=== PATIENT | female | born 1990 | race Caucasian/White ===

== ENCOUNTER 2016-06-15 07:32 | Emergency (ER) | payer OTHER ==
[~2016-06-15] VITALS: Ht 162.6 cm; Wt 87.5 kg
[~2016-06-15 07:32] MED LIST: AVIANE1 EACH PO; BACTRIM,SEPT1 TABLET PO; CEFDINIR300 MG PO; FLEXERIL10 MG PO; HYDROXYZINE HCL10 MG PO; NAPROSYN500 MG PO; PREDNISONE20 MG PO; PROZAC10 M1 PO; ZOFRAN4 MG PO; ZOLOFT50 M1 PO
[2016-06-15] MEDS ORDERED: TRAZODONE HCL50 MG PO (07:49)
[2016-06-15] MEDS ORDERED: ATARAX10 MG PO (07:49)
[2016-06-15] MEDS ORDERED: ORSYTHIA1 EACH PO (07:50)
[2016-06-15 08:01] LABS: EOSINOPHIL (%) 1.5 % (0-5); EOSINOPHIL COUNT 0.2 K/uL (0-0.3); HEMATOCRIT 41.7 % (36.0-46.0); IMMATURE GRANULOCYTE (%) 0.3 % (0.0-0.7); IMMATURE GRANULOCYTE COUNT 0.3 K/uL; MCHC 34.8 G/DL (30.0-36.0); MCV 83.4 FL (83-99); MEAN PLAT.VOLUME 9.6 uM^3 (9.5-12.4); MONOCYTE (%) 6.4 % (3-12); MONOCYTE COUNT 0.7 K/uL (0-0.8); NEUTROPHIL (%) 64.1 % (45-76); NEUTROPHIL COUNT 6.9 K/uL (1.8-6.4); PLATELET COUNT 355 K/uL (156-360); RBC DIS.WIDTH-SD 38.8 % (39-53); WHITE BLOOD COUNT 10.8 K/uL (4.1-10.2)
[2016-06-15 08:11] LABS: CHLORIDE 106 mEq/L (99-109)
[2016-06-15 08:12] LABS: POTASSIUM 3.5 mEq/L (3.7-5.4); SODIUM 139 mEq/L (136-147)
[2016-06-15 08:14] LABS: GLUCOSE 106 mg/dL (70-99)
[2016-06-15 08:15] LABS: ANION GAP 10 MEQ/L (2-14)
[2016-06-15 08:16] LABS: TOTAL BILIRUBIN 0.4 mg/dL (0.0-1.0)
[2016-06-15 08:17] LABS: ALKALINE PHOSPHATASE 92 IU/L (3-129)
[2016-06-15 08:18] LABS: GFR ESTIMATE (CALCULATED) > 59 mL/min/
[2016-06-15 08:19] LABS: UREA NITROGEN (BUN) 14 mg/dL (9-23)
[2016-06-15 08:27] LABS: QUANTITATIVE HCG < 4.0 MIU/ML
[2016-06-15 08:37] LABS: INFLUENZA A VIRAL ANTIGEN NEGATIVE; INFLUENZA B VIRAL ANTIGEN NEGATIVE
[2016-06-15] MEDS ORDERED: ZOFRAN ODT4 MG PO (08:43)
[2016-06-15 09:02] VITALS: BP 112/75
[2016-06-30] MEDS ORDERED: ZOFRAN4 MG PO (02:58)
== END 2016-06-15 09:02 | disposition home or self-care (01) ==
LOC: EME 07:32
PROVIDERS: Physician Assistant
DX: K52.9 Noninfective gastroenteritis and colitis, unspecified (principal)
CPT/HCPCS: 80053; 84702; 85025; 87502; 99281; 99284

== ENCOUNTER 2016-06-17 00:31 | Emergency (ER) | payer OTHER ==
[~2016-06-17] VITALS: Ht 162.6 cm; Wt 85.9 kg
[~2016-06-17 00:31] MED LIST changes: +ATARAX10 MG PO; +ORSYTHIA1 EACH PO; +TRAZODONE HCL50 MG PO; +ZOFRAN ODT4 MG PO
[2016-06-17 00:54] LABS: HEMATOCRIT 42.7 % (36.0-46.0); MCH 28.9 PG (29.0-34.0); MCHC 34.4 G/DL (30.0-36.0); MCV 83.9 FL (83-99); MEAN PLAT.VOLUME 9.6 uM^3 (9.5-12.4); PLATELET COUNT 363 K/uL (156-360); RBC DIS.WIDTH-CV 13.1 % (11.8-14.6); RBC DIS.WIDTH-SD 39.4 % (39-53); RED BLOOD COUNT 5.09 M/uL (3.80-5.20); WHITE BLOOD COUNT 11.7 K/uL (4.1-10.2)
[2016-06-17 00:58] LABS: CHLORIDE 107 mEq/L (99-109); POTASSIUM 3.8 mEq/L (3.7-5.4); SODIUM 141 mEq/L (136-147)
[2016-06-17 00:59] LABS: ADD MIUA? YES; BILIRUBIN NEGATIVE; BLOOD NEGATIVE; COLOR AMBER ((YELLOW)); GLUCOSE (STRIP) NEGATIVE; KETONES 20; LEUKOCYTES MODERATE; NITRITE NEGATIVE; PROTEIN (STRIP) 30; SPECIFIC GRAVITY 1.026 (1.000-1.030)
[2016-06-17 01:00] LABS: GLUCOSE 91 mg/dL (70-99)
[2016-06-17 01:01] LABS: ANION GAP 13 MEQ/L (2-14)
[2016-06-17 01:03] LABS: ALKALINE PHOSPHATASE 95 IU/L (3-129)
[2016-06-17 01:04] LABS: GFR ESTIMATE (CALCULATED) > 59 mL/min/
[2016-06-17 01:05] LABS: UREA NITROGEN (BUN) 10 mg/dL (9-23)
[2016-06-17 01:08] LABS: BACTERIA 1+ /HPF; EPITHELIAL CELLS 2+ /HPF; MUCUS 3+ /LPF; UCUL ADDED? NO
[2016-06-17 01:15] LABS: QUANTITATIVE HCG < 4.0 MIU/ML
[2016-06-17 01:16] LABS: TOTAL BILIRUBIN 0.7 mg/dL (0.0-1.0)
[2016-06-17] MEDS ORDERED: OMEPRAZOLE40 M1 PO (01:44)
[2016-06-17] MEDS ORDERED: PERCOCET 5/31 TABLET PO (01:44)
[2016-06-17 02:01] VITALS: BP 1443/78
[2016-06-17] MEDS ORDERED: ZOFRAN ODT4 MG PO (09:35)
[2016-06-17] MEDS ORDERED: BENTYL10 MG PO (09:35)
[2016-06-30] MEDS ORDERED: ZOFRAN4 MG PO (02:58)
== END 2016-06-17 01:57 | disposition home or self-care (01) ==
LOC: EME 00:31
DX: R10.9 Unspecified abdominal pain (principal)
CPT/HCPCS: 74177; 80053; 81003; 84702; 85027; 99281; 99285; J2405; S0028

== ENCOUNTER 2016-06-17 07:25 | Emergency (ER) | payer OTHER ==
[~2016-06-17] VITALS: Ht 162.6 cm; Wt 86.5 kg
[~2016-06-17 07:25] MED LIST changes: +OMEPRAZOLE40 M1 PO; +PERCOCET 5/31 TABLET PO
[2016-06-17 08:03] LABS: ADD MIUA? YES; BILIRUBIN NEGATIVE; BLOOD NEGATIVE; COLOR AMBER ((YELLOW)); GLUCOSE (STRIP) NEGATIVE; KETONES 20; LEUKOCYTES MODERATE; NITRITE NEGATIVE; PROTEIN (STRIP) NEGATIVE
[2016-06-17 08:29] LABS: EPITHELIAL CELLS 2+ /HPF
[2016-06-17 08:30] LABS: BACTERIA 2+ /HPF; CASTS NONE SEEN /LPF; CRYSTALS NONE SEEN; MUCUS NONE SEEN /LPF; RED BLOOD CELLS NONE SEEN /HPF (0-5); UCUL ADDED? YES
[2016-06-17 08:38] LABS: SPECIFIC GRAVITY 1.088 (1.000-1.030)
[2016-06-17] MEDS ORDERED: BENTYL10 MG PO (09:35)
[2016-06-17] MEDS ORDERED: ZOFRAN ODT4 MG PO (09:35)
[2016-06-17 09:43] VITALS: BP 127/69
[2016-06-30] MEDS ORDERED: ZOFRAN4 MG PO (02:58)
== END 2016-06-17 09:51 | disposition home or self-care (01) ==
LOC: EME → EDBD 07:25 → EME 09:51
PROVIDERS: Nurse Practitioner Family
DX: R10.13 Epigastric pain (principal); R11.0 Nausea; R50.9 Fever, unspecified
CPT/HCPCS: 76705; 80053; 81003; 83690; 85027; 87086; 99281; 99284

== ENCOUNTER 2016-08-14 03:30 | Emergency (ER) | payer OTHER ==
[~2016-08-14] VITALS: Ht 162.6 cm; Wt 83.2 kg
[~2016-08-14 03:30] MED LIST changes: +BENTYL10 MG PO
[2016-08-14 04:18] LABS: ADD MIUA? YES; BILIRUBIN NEGATIVE; BLOOD NEGATIVE; COLOR YELLOW ((YELLOW)); GLUCOSE (STRIP) NEGATIVE; KETONES 20; LEUKOCYTES TRACE; NITRITE NEGATIVE; PROTEIN (STRIP) NEGATIVE; SPECIFIC GRAVITY 1.023 (1.000-1.030); UROBILINOGEN 0.2 MG/DL (0.2-1.0)
[2016-08-14 04:19] LABS: HEMATOCRIT 44.3 % (36.0-46.0); MCH 28.8 PG (29.0-34.0); MCHC 33.9 G/DL (30.0-36.0); MEAN PLAT.VOLUME 9.5 uM^3 (9.5-12.4); PLATELET COUNT 351 K/uL (156-360); RBC DIS.WIDTH-CV 12.7 % (11.8-14.6); RBC DIS.WIDTH-SD 39.2 % (39-53); RED BLOOD COUNT 5.21 M/uL (3.80-5.20); WHITE BLOOD COUNT 12.4 K/uL (4.1-10.2)
[2016-08-14 04:21] LABS: BACTERIA RARE /HPF; EPITHELIAL CELLS 2+ /HPF; MUCUS TRACE /LPF; RED BLOOD CELLS 0-5 /HPF (0-5); UCUL ADDED? NO; WHITE BLOOD CELLS 0-5 /HPF (0-5)
[2016-08-14 04:30] LABS: CHLORIDE 106 mEq/L (99-109); POTASSIUM 3.8 mEq/L (3.7-5.4); SODIUM 137 mEq/L (136-147)
[2016-08-14 04:32] LABS: GLUCOSE 108 mg/dL (70-99)
[2016-08-14 04:33] LABS: ANION GAP 9 MEQ/L (2-14)
[2016-08-14 04:34] LABS: TOTAL BILIRUBIN 0.7 mg/dL (0.0-1.0)
[2016-08-14 04:35] LABS: ALKALINE PHOSPHATASE 92 IU/L (3-129)
[2016-08-14 04:36] LABS: GFR ESTIMATE (CALCULATED) > 59 mL/min/
[2016-08-14 04:37] LABS: UREA NITROGEN (BUN) 12 mg/dL (9-23)
[2016-08-14 04:39] LABS: LIPASE 13 U/L (1.0-51.0)
[2016-08-14 04:45] LABS: QUANTITATIVE HCG < 4.0 MIU/ML
[2016-08-14] MEDS ORDERED: ZOFRAN ODT4 MG PO (05:43)
[2016-08-14] MEDS ORDERED: PERCOCET 5/31 TABLET PO (05:43)
[2016-08-14 05:58] VITALS: BP 100/73
== END 2016-08-14 05:59 | disposition home or self-care (01) ==
LOC: EME 03:30
PROVIDERS: Emergency Medicine
DX: R10.9 Unspecified abdominal pain (principal); R11.2 Nausea with vomiting, unspecified; F41.9 Anxiety disorder, unspecified; K29.70 Gastritis, unspecified, without bleeding
CPT/HCPCS: 80053; 81003; 83690; 84702; 85027; 93005; 99281; 99285; J2270; J2405; J7030; Q0169

== ENCOUNTER 2016-08-16 08:21 | Emergency (ER) | payer OTHER ==
[~2016-08-16] VITALS: Ht 162.6 cm; Wt 83.6 kg
[2016-08-16 09:10] LABS: ADD MIUA? YES; BILIRUBIN NEGATIVE; BLOOD SMALL; COLOR YELLOW ((YELLOW)); GLUCOSE (STRIP) NEGATIVE; KETONES 5; LEUKOCYTES LARGE; NITRITE NEGATIVE; PROTEIN (STRIP) NEGATIVE; SPECIFIC GRAVITY 1.017 (1.000-1.030)
[2016-08-16 09:12] LABS: HEMATOCRIT 44.3 % (36.0-46.0); MCH 28.7 PG (29.0-34.0); MCHC 33.6 G/DL (30.0-36.0); MCV 85.4 FL (83-99); MEAN PLAT.VOLUME 9.5 uM^3 (9.5-12.4); PLATELET COUNT 323 K/uL (156-360); RBC DIS.WIDTH-CV 12.6 % (11.8-14.6); RBC DIS.WIDTH-SD 39.1 % (39-53); RED BLOOD COUNT 5.19 M/uL (3.80-5.20)
[2016-08-16 09:15] LABS: BACTERIA 3+ /HPF; BUDDING YEAST 2+; EPITHELIAL CELLS 4+ /HPF; MUCUS 2+ /LPF; WHITE BLOOD CELLS 15-20 /HPF (0-5)
[2016-08-16 09:20] LABS: CHLORIDE 103 mEq/L (99-109); POTASSIUM 3.7 mEq/L (3.7-5.4); SODIUM 137 mEq/L (136-147)
[2016-08-16 09:22] LABS: GLUCOSE 99 mg/dL (70-99)
[2016-08-16 09:24] LABS: ANION GAP 10 MEQ/L (2-14)
[2016-08-16 09:25] LABS: TOTAL BILIRUBIN 0.4 mg/dL (0.0-1.0)
[2016-08-16 09:26] LABS: ALKALINE PHOSPHATASE 75 IU/L (3-129); GFR ESTIMATE (CALCULATED) > 59 mL/min/
[2016-08-16 09:27] LABS: UREA NITROGEN (BUN) 7 mg/dL (9-23)
[2016-08-16 09:35] LABS: QUANTITATIVE HCG < 4.0 MIU/ML
[2016-08-16] MEDS ORDERED: KEFLEX500 MG PO (10:15)
[2016-08-16] MEDS ORDERED: PHENERGAN25 MG PR (10:15)
[2016-08-16] MEDS ORDERED: BENTYL20 MG PO (10:15)
[2016-08-16 10:41] VITALS: BP 123/83
[2016-08-17] MEDS ORDERED: ZOFRAN4 MG PO (01:22)
== END 2016-08-16 10:45 | disposition home or self-care (01) ==
LOC: EME 08:21
PROVIDERS: Nurse Practitioner Family
DX: N39.0 Urinary tract infection, site not specified (principal); R11.0 Nausea; F41.9 Anxiety disorder, unspecified
CPT/HCPCS: 74000; 80053; 81003; 84702; 85027; 99281; 99284; J1885; J2405; J7030; Q0169

== ENCOUNTER 2016-08-16 22:37 | Emergency (ER) | payer OTHER ==
[~2016-08-16] VITALS: Ht 162.6 cm; Wt 84.5 kg
[~2016-08-16 22:37] MED LIST changes: +BENTYL20 MG PO; +KEFLEX500 MG PO; +PHENERGAN25 MG PR
[2016-08-17] LABS: HEMATOCRIT 44.1 % (36.0-46.0); MCH 28.2 PG (29.0-34.0); MCHC 32.9 G/DL (30.0-36.0); MCV 85.8 FL (83-99); MEAN PLAT.VOLUME 9.8 uM^3 (9.5-12.4); PLATELET COUNT 309 K/uL (156-360); RBC DIS.WIDTH-CV 12.6 % (11.8-14.6); RBC DIS.WIDTH-SD 39.1 % (39-53); RED BLOOD COUNT 5.14 M/uL (3.80-5.20); WHITE BLOOD COUNT 7.1 K/uL (4.1-10.2)
[2016-08-17 00:12] LABS: CHLORIDE 105 mEq/L (99-109); POTASSIUM 3.5 mEq/L (3.7-5.4); SODIUM 137 mEq/L (136-147)
[2016-08-17 00:14] LABS: GLUCOSE 88 mg/dL (70-99)
[2016-08-17 00:15] LABS: ANION GAP 9 MEQ/L (2-14)
[2016-08-17 00:18] LABS: ALKALINE PHOSPHATASE 72 IU/L (3-129); GFR ESTIMATE (CALCULATED) > 59 mL/min/
[2016-08-17 00:19] LABS: UREA NITROGEN (BUN) 7 mg/dL (9-23)
[2016-08-17 00:21] LABS: LIPASE 18 U/L (1.0-51.0)
[2016-08-17 00:32] LABS: TOTAL BILIRUBIN 0.3 mg/dL (0.0-1.0)
[2016-08-17] MEDS ORDERED: ZOFRAN4 MG PO (01:22)
[2016-08-17 01:31] VITALS: BP 110/76
== END 2016-08-17 01:33 | disposition home or self-care (01) ==
LOC: EME 22:37
PROVIDERS: Emergency Medicine
DX: R10.9 Unspecified abdominal pain (principal); F41.9 Anxiety disorder, unspecified
CPT/HCPCS: 80053; 83690; 85027; 99281; 99284; J1630; J7030

== ENCOUNTER 2017-02-12 05:09 | Emergency (ER) | payer OTHER ==
[~2017-02-12] VITALS: Ht 162.6 cm; Wt 86.5 kg
[2017-02-12 05:38] LABS: EOSINOPHIL (%) 1.2 % (0-5); EOSINOPHIL COUNT 0.1 K/uL (0-0.3); HEMATOCRIT 42.2 % (36.0-46.0); IMMATURE GRANULOCYTE (%) 0.3 % (0.0-0.7); INSTRUMENT ABS NEUTROPHIL CT 7.4 K/uL; LYMPHOCYTE COUNT 2.9 K/uL (1.0-2.8); MCH 28.3 PG (29.0-34.0); MCHC 33.4 G/DL (30.0-36.0); MCV 84.6 FL (83-99); MEAN PLAT.VOLUME 9.5 uM^3 (9.5-12.4); MONOCYTE (%) 5.5 % (3-12); MONOCYTE COUNT 0.6 K/uL (0-0.8); NEUTROPHIL (%) 66.5 % (45-76); NEUTROPHIL COUNT 7.4 K/uL (1.8-6.4); PLATELET COUNT 340 K/uL (156-360); RBC DIS.WIDTH-CV 13.1 % (11.8-14.6); RBC DIS.WIDTH-SD 40.6 % (39-53); RED BLOOD COUNT 4.99 M/uL (3.80-5.20); WHITE BLOOD COUNT 11.1 K/uL (4.1-10.2)
[2017-02-12 05:46] LABS: CHLORIDE 104 mEq/L (99-109); POTASSIUM 3.4 mEq/L (3.7-5.4); SODIUM 138 mEq/L (136-147)
[2017-02-12 05:49] LABS: GLUCOSE 101 mg/dL (70-99)
[2017-02-12 05:50] LABS: ANION GAP 12 MEQ/L (2-14)
[2017-02-12 05:51] LABS: TOTAL BILIRUBIN 0.4 mg/dL (0.0-1.0)
[2017-02-12 05:52] LABS: ALKALINE PHOSPHATASE 86 IU/L (3-129); GFR ESTIMATE (CALCULATED) > 59 mL/min/
[2017-02-12 05:53] LABS: UREA NITROGEN (BUN) 12 mg/dL (9-23)
[2017-02-12 05:56] LABS: LIPASE 20 U/L (1.0-51.0)
[2017-02-12 06:01] LABS: QUANTITATIVE HCG < 4.0 MIU/ML
[2017-02-12 06:06] LABS: ADD MIUA? YES; BILIRUBIN NEGATIVE; BLOOD NEGATIVE; COLOR YELLOW ((YELLOW)); GLUCOSE (STRIP) NEGATIVE; KETONES NEGATIVE; LEUKOCYTES TRACE; NITRITE NEGATIVE; PROTEIN (STRIP) NEGATIVE; SPECIFIC GRAVITY 1.023 (1.000-1.030); UROBILINOGEN 0.2 MG/DL (0.2-1.0)
[2017-02-12 06:25] LABS: BACTERIA 1+ /HPF; CASTS NONE SEEN /LPF; CRYSTALS NONE SEEN; EPITHELIAL CELLS 1+ /HPF; MUCUS NONE SEEN /LPF; RED BLOOD CELLS 0-5 /HPF (0-5); UCUL ADDED? NO; WHITE BLOOD CELLS 0-5 /HPF (0-5)
[2017-02-12] MEDS ORDERED: ZOFRAN4 MG PO (06:38)
[2017-02-12 06:57] VITALS: BP 120/66
== END 2017-02-12 07:01 | disposition home or self-care (01) ==
LOC: EME 05:09
PROVIDERS: Emergency Medicine
DX: E86.0 Dehydration (principal); R11.0 Nausea; F41.9 Anxiety disorder, unspecified
CPT/HCPCS: 80053; 81003; 83690; 84702; 85025; 99281; 99285; J2405; J2765; J7030

== ENCOUNTER 2017-07-30 20:46 | Emergency (ER) | payer OTHER ==
[~2017-07-30] VITALS: Ht 162.6 cm; Wt 84.1 kg
[2017-07-30 21:27] LABS: HEMATOCRIT 44.1 % (36.0-46.0); MCH 29.1 PG (29.0-34.0); MCV 85.6 FL (83-99); PLATELET COUNT 381 K/uL (156-360); RBC DIS.WIDTH-CV 12.7 % (11.8-14.6); RBC DIS.WIDTH-SD 39.5 % (39-53); RED BLOOD COUNT 5.15 M/uL (3.80-5.20); WHITE BLOOD COUNT 9.8 K/uL (4.1-10.2)
[2017-07-30 22:17] LABS: CHLORIDE 108 mEq/L (99-109); POTASSIUM 3.3 mEq/L (3.7-5.4); SODIUM 140 mEq/L (136-147)
[2017-07-30 22:19] LABS: GLUCOSE 100 mg/dL (70-99)
[2017-07-30 22:23] LABS: CREATININE 0.9 mg/dL (0.6-1.3); GFR ESTIMATE (CALCULATED) > 59 mL/min/
[2017-07-30 22:23] LABS: APPEARANCE CLOUDY ((CLEAR)); BILIRUBIN NEGATIVE; BLOOD NEGATIVE; COLOR YELLOW ((YELLOW)); GLUCOSE (STRIP) NEGATIVE; KETONES NEGATIVE; LEUKOCYTES MODERATE; NITRITE NEGATIVE; PROTEIN (STRIP) 30; SPECIFIC GRAVITY 1.029 (1.000-1.030); UROBILINOGEN 0.2 MG/DL (0.2-1.0)
[2017-07-30 22:24] LABS: UREA NITROGEN (BUN) 12 mg/dL (9-23)
[2017-07-30 22:38] LABS: ALBUMIN 4.1 g/dL (3.2-4.8)
[2017-07-30 22:41] LABS: TOTAL PROTEIN 7.8 g/dL (6.4-8.3)
[2017-07-30 22:43] LABS: TOTAL BILIRUBIN 0.3 mg/dL (0.0-1.0)
[2017-07-30 22:44] LABS: ALKALINE PHOSPHATASE 89 IU/L (3-129)
[2017-07-30 22:46] LABS: AST (GOT) 21 IU/L (2-34); DIRECT BILIRUBIN 0.1 mg/dL (0.0-0.3)
[2017-07-30 22:47] LABS: ALT (GPT) 21 IU/L (3-49); LIPASE 31 U/L (1.0-51.0)
[2017-07-30 23:04] LABS: QUANTITATIVE HCG < 4.0 MIU/ML
[2017-07-30 23:09] LABS: BACTERIA RARE /HPF; CALCIUM OXALATE CRYSTALS 4+ /HPF; EPITHELIAL CELLS 3+ /HPF; MUCUS TRACE /LPF; RED BLOOD CELLS NONE SEEN /HPF (0-5); UCUL ADDED? YES
[2017-07-30] MEDS ORDERED: PYRIDIUM200 MG PO (23:21)
[2017-07-30] MEDS ORDERED: ZOFRAN4 MG PO (23:21)
[2017-07-30] MEDS ORDERED: KEFLEX500 MG PO (23:21)
[2017-07-31] VITALS: BP 108/86
== END 2017-07-31 00:01 | disposition home or self-care (01) ==
LOC: EME 20:46
DX: N30.00 Acute cystitis without hematuria (principal); E87.6 Hypokalemia; E78.5 Hyperlipidemia, unspecified; F41.9 Anxiety disorder, unspecified; Z87.440 Personal history of urinary (tract) infections
CPT/HCPCS: 80048; 80076; 81003; 83690; 84702; 85027; 87086; 99281; 99284

== ENCOUNTER 2017-11-10 23:37 | Emergency (ER) | payer OTHER ==
[~2017-11-10] VITALS: Ht 162.6 cm; Wt 88.1 kg
[~2017-11-10 23:37] MED LIST changes: +PYRIDIUM200 MG PO
[2017-11-11] MEDS ORDERED: MOTRIN600 MG PO (00:51)
[2017-11-11] MEDS ORDERED: ALOE VERA-LIDO227 GM TP (00:51)
[2017-11-11 01:01] VITALS: BP 128/83
== END 2017-11-11 01:02 | disposition home or self-care (01) ==
LOC: EME 23:37
DX: L55.0 Sunburn of first degree (principal); E78.5 Hyperlipidemia, unspecified
CPT/HCPCS: 99281; 99283

== ENCOUNTER 2017-12-02 20:18 | Emergency (ER) | payer OTHER ==
[~2017-12-02] VITALS: Ht 162.6 cm; Wt 86.2 kg
[~2017-12-02 20:18] MED LIST changes: +ALOE VERA-LIDO227 GM TP; +MOTRIN600 MG PO
[2017-12-02 20:40] LABS: HEMATOCRIT 44.8 % (36.0-46.0); HEMOGLOBIN 15.1 G/DL (11.9-15.5); MCHC 33.7 G/DL (30.0-36.0); MCV 86.2 FL (83-99); PLATELET COUNT 312 K/uL (156-360); RBC DIS.WIDTH-CV 12.9 % (11.8-14.6); RBC DIS.WIDTH-SD 40.2 % (39-53)
[2017-12-02 20:48] LABS: ALBUMIN 4.2 g/dL (3.2-4.8); CHLORIDE 105 mEq/L (99-109); POTASSIUM 4.1 mEq/L (3.7-5.4); SODIUM 139 mEq/L (136-147)
[2017-12-02 20:50] LABS: GLUCOSE 109 mg/dL (70-99)
[2017-12-02 20:51] LABS: TOTAL PROTEIN 7.7 g/dL (6.4-8.3)
[2017-12-02 20:52] LABS: TOTAL BILIRUBIN 0.5 mg/dL (0.0-1.0)
[2017-12-02 20:54] LABS: ALKALINE PHOSPHATASE 97 IU/L (3-129); CREATININE 0.9 mg/dL (0.6-1.3); GFR ESTIMATE (CALCULATED) > 59 mL/min/
[2017-12-02 20:55] LABS: UREA NITROGEN (BUN) 8 mg/dL (9-23)
[2017-12-02 20:56] LABS: AST (GOT) 24 IU/L (2-34)
[2017-12-02 20:57] LABS: ALT (GPT) 35 IU/L (3-49)
[2017-12-02 21:03] LABS: QUANTITATIVE HCG < 4.0 MIU/ML
[2017-12-02] MEDS ORDERED: ZOFRAN ODT4 MG PO (21:08)
[2017-12-02] MEDS ORDERED: BENTYL10 MG PO (21:08)
[2017-12-02 21:18] LABS: APPEARANCE CLEAR ((CLEAR)); BILIRUBIN NEGATIVE; BLOOD NEGATIVE; COLOR YELLOW ((YELLOW)); GLUCOSE (STRIP) NEGATIVE; KETONES NEGATIVE; LEUKOCYTES TRACE; NITRITE NEGATIVE; PROTEIN (STRIP) NEGATIVE; SPECIFIC GRAVITY 1.015 (1.000-1.030); UROBILINOGEN 0.2 MG/DL (0.2-1.0)
[2017-12-02 21:20] LABS: BACTERIA NONE SEEN /HPF; EPITHELIAL CELLS 2+ /HPF; MUCUS NONE SEEN /LPF; RED BLOOD CELLS 0-5 /HPF (0-5); UCUL ADDED? NO; WHITE BLOOD CELLS 0-5 /HPF (0-5)
[2017-12-02 23:31] VITALS: BP 106/82
== END 2017-12-02 23:34 | disposition home or self-care (01) ==
LOC: EME 20:18
DX: B34.9 Viral infection, unspecified (principal); F41.9 Anxiety disorder, unspecified
CPT/HCPCS: 80053; 81003; 84702; 85027; 99281; 99285; J1885; J2405; J7030